=== PATIENT | female | born 1995 | race Caucasian/White ===

== ENCOUNTER 2016-03-25 11:20 | Emergency (ER) | payer BC ==
[~2016-03-25] VITALS: Ht 167.6 cm; Wt 72.7 kg
[~2016-03-25 11:20] MED LIST: DEPO-PROVER150 MG/M1 IM; NEXPLANON68 MG ID; NORCO 325 MG-51 TAB PO; PERCOCET 325 MG1 TA2 PO; PHENERGAN 25 TA25 MG PO; TUSS PO
[2016-03-25 11:21] VITALS: TEMP 98.9
[2016-03-25 12:31] LABS: AMPHETAMINE URINE POSITIVE; BARBITURATES URINE NEGATIVE; BENZODIAZEPINES URINE NEGATIVE; BUPRENORPHINE URINE NEGATIVE; METHADONE URINE NEGATIVE; OPIATES URINE NEGATIVE; OXYCODONE URINE NEGATIVE; PHENCYCLIDINE URINE NEGATIVE; PROPOXYPHENE URINE NEGATIVE; THC CANNABINOIDS URINE NEGATIVE
[2016-03-25] MEDS ORDERED: FLAGYL500 MG PO (13:41)
[2016-03-25 13:57] VITALS: BP 111/66; PULSE 86
[2016-03-25 14:16] LABS: CHLAMYDIA/TRACH by PCR Female NOT DETECTED; NEISSERIA GON by PCR Female NOT DETECTED
[2016-04-02 23:38] LABS: 7-AMINOFLUNITRAZEPAM NEGATIVE (NEGATIVE); FLUNITRAZEPAM NEGATIVE (NEGATIVE)
== END 2016-03-25 13:57 | disposition home or self-care (01) ==
LOC: COL.ER 11:20
PROVIDERS: Family Medicine; Nurse Practitioner
DX: Z04.41 Encounter for examination and observation following alleged adult rape (principal)
CPT/HCPCS: J0696

== ENCOUNTER 2016-09-09 20:00 | Emergency (ER) | payer BC ==
[~2016-09-09] VITALS: Ht 167.6 cm; Wt 72.7 kg
[~2016-09-09 20:00] MED LIST changes: +FLAGYL500 MG PO
[2016-09-09 20:01] VITALS: BP 114/65; TEMP 99
[2016-09-09 20:53] LABS: PH 7 (5-8); SQUAMOUS EPITHELIAL None Seen /hpf; URINE APPEARANCE Turbid; URINE BACTERIA None Seen /hpf; URINE BILIRUBIN Negative (NEGATIVE); URINE BLOOD 3+ (NEGATIVE); URINE COLOR Red; URINE GLUCOSE Negative (NEGATIVE); URINE KETONE Negative (NEGATIVE); URINE RBC >50 /hpf; URINE UROBILINOGEN Negative (NEGATIVE)
[2016-09-09 20:54] LABS: URINE WBC >50 /hpf
[2016-09-09] MEDS ORDERED: OMNICEF 300MG300 MG PO (20:59)
[2016-09-09] MEDS ORDERED: PYRIDIUM200 M1 PO (20:59)
[2016-09-09 21:08] VITALS: PULSE 78
== END 2016-09-09 21:09 | disposition home or self-care (01) ==
LOC: COL.ER 20:00
PROVIDERS: Emergency Medicine
DX: N39.0 Urinary tract infection, site not specified (principal)

== ENCOUNTER 2016-11-06 20:58 | Inpatient (IN) | payer BC ==
[~2016-11-06] VITALS: Ht 167.6 cm; Wt 83.9 kg
[~2016-11-06 20:58] MED LIST changes: +OMNICEF 300MG300 MG PO; +PYRIDIUM200 M1 PO
[2016-11-06 21:36] LABS: BASO # 0.1 (0.0-0.2); BASO % 0.6 % (0.0-2.0); EOS # 0.2 (0.0-0.7); EOS % 1.4 % (0-4.0); GRAN # 8.3 (1.4-6.5); GRAN % 65.9 % (42.2-75.2); HEMOGLOBIN 12.1 g/dl (12.5-16.0); LYMPH # 3.4 (1.2-3.4); LYMPH % 26.7 % (20.0-51.0); MEAN CELL VOLUME 86 fl (80.0-100.0); MEAN CORPUSCULAR HEMOGLOBIN 29 pg (27.0-31.0); MEAN CORPUSCULAR HGB CONC 34 g/dl (33.0-37.0); MEAN PLATELET VOLUME 9.3 fl (7.4-10.4); MONO # 0.6 (0.1-0.6); PLATELET COUNT 340 K/mm3 (130-400); RED BLOOD COUNT 4.12 M/mm3 (4.10-5.30); REDCELL DISTRIBUTION WIDTH-CV 12.3 % (11.5-14.5); WHITE BLOOD COUNT 12.6 K/mm3 (4.8-10.8)
[2016-11-06 21:38] LABS: ADJUSTED CALCIUM 8.6 mg/dL (8.4-10.2); ALBUMIN 4.1 gm/dL (3.5-5.0); BILIRUBIN,TOTAL 0.4 mg/dL (0.0-1.0); CALCIUM 8.7 mg/dL (8.4-10.2); CREATININE, serum 0.99 mg/dL (0.52-1.25); HEMATOCRIT 35.5 % (37.0-47.0); TOTAL PROTEIN 7.3 gm/dL (6.4-8.2)
[2016-11-06 22:07] LABS: ALLEN TEST YES; ATS? YES
[2016-11-06 22:13] LABS: ARTERIAL BLOOD GAS pH 7.35 (7.35-7.45)
[2016-11-06 22:14] LABS: ARTERIAL BLOOD GAS HCO3 21.1 meq/L (22-26); ARTERIAL BLOOD GAS PO2 113.2 mmHg (80-100)
[2016-11-06 22:15] LABS: ARTERIAL BLD GAS O2 SATURATION 97.5 % (92-100); ARTERIAL BLOOD GAS BASE EXCESS -4.2 (-2-2)
[2016-11-06 22:16] LABS: ARTERIAL BLD GAS TCO2 CT 22.3; OXYHEMOGLOBIN 96.5 %
[2016-11-06 22:17] LABS: ALLEN TEST YES; ATS? YES
[2016-11-07] VITALS (7 sets, daily range): BP systolic 99–122; BP diastolic 62–83; PULSE 78–96; TEMP 97.2–98.8
[2016-11-07] MEDS ORDERED: PERCOCET 325 MG1 TA3 PO (16:08)
[2016-11-07] MEDS ORDERED: COLACE 100100 MG/CAP PO (16:08)
[2016-11-07] MEDS ORDERED: MOTRIN 800800 MG/TAB PO (16:08)
[2016-11-07] MEDS ORDERED: ZOFRAN ODT4 MG PO (16:09)
[2016-11-08 02:39] VITALS: BP 94/56; PULSE 77; TEMP 98.1
[2016-11-08 07:50] VITALS: BP 110/72; PULSE 80; TEMP 98.2
== END 2016-11-08 10:51 | disposition home or self-care (01) | DRG 935 ==
LOC: COL.ER 20:58 → MEDICAL 11-07 00:12
PROVIDERS: Emergency Medicine
DX: T24.291A Burn of second degree of multiple sites of right lower limb, except ankle and foot, initial encounter (principal); T24.292A Burn of second degree of multiple sites of left lower limb, except ankle and foot, initial encounter; T20.22XA Burn of second degree of lip(s), initial encounter; T20.26XA Burn of second degree of forehead and cheek, initial encounter; X00.8XXA Other exposure to uncontrolled fire in building or structure, initial encounter
CPT/HCPCS: A9284; J1170; J1885; J2270; J7030

== ENCOUNTER 2016-12-08 13:04 | Observation (INO) | payer BC ==
[~2016-12-08] VITALS: Ht 167.6 cm; Wt 75.0 kg
[2016-12-08] VITALS (7 sets, daily range): BP systolic 103–116; BP diastolic 58–78; PULSE 82–131; TEMP 98.4–99.3
[~2016-12-08 13:04] MED LIST changes: +COLACE 100100 MG/CAP PO; +MOTRIN 800800 MG/TAB PO; +PERCOCET 325 MG1 TA3 PO; +ZOFRAN ODT4 MG PO
[2016-12-08 14:05] LABS: BASO # 0.1 (0.0-0.2); BASO % 0.4 % (0.0-2.0); EOS % 0.3 % (0-4.0); GRAN # 11.1 (1.4-6.5); GRAN % 81.1 % (42.2-75.2); LYMPH # 1.8 (1.2-3.4); LYMPH % 13.1 % (20.0-51.0); MEAN CELL VOLUME 85 fl (80.0-100.0); MEAN CORPUSCULAR HGB CONC 35 g/dl (33.0-37.0); MEAN PLATELET VOLUME 10.2 fl (7.4-10.4); MONO # 0.6 (0.1-0.6); MONO % 4.7 % (1.7-9.3); PLATELET COUNT 235 K/mm3 (130-400); WHITE BLOOD COUNT 13.7 K/mm3 (4.8-10.8)
[2016-12-08 14:07] LABS: HEMATOCRIT 33.1 % (37.0-47.0); HEMOGLOBIN 11.5 g/dl (12.5-16.0); MEAN CORPUSCULAR HEMOGLOBIN 29 pg (27.0-31.0)
[2016-12-08 14:21] LABS: ADJUSTED CALCIUM 9.3 mg/dL (8.4-10.2); ALBUMIN 4.8 gm/dL (3.5-5.0); BILIRUBIN,TOTAL 0.5 mg/dL (0.0-1.0); C-REACTIVE PROTEIN 4.6 mg/dL (0.0-0.9); CALCIUM 9.9 mg/dL (8.4-10.2); CREATININE, serum 0.65 mg/dL (0.52-1.25); POTASSIUM 3.7 mmol/L (3.4-5.0); TOTAL PROTEIN 8.3 gm/dL (6.4-8.2)
[2016-12-08] MEDS ORDERED: PERCOCET 325 MG1 TA2 PO (17:58)
[2016-12-08] MEDS ORDERED: AMOXICILLIN 8751 TAB PO (17:58)
== END 2016-12-08 23:10 | disposition home or self-care (01) ==
LOC: COL.ER 13:04 → OB 17:08
PROVIDERS: Emergency Medicine
DX: O04.6 Delayed or excessive hemorrhage following (induced) termination of pregnancy (principal); R30.0 Dysuria
CPT/HCPCS: J1170; J1580; J2405; J2704; J3010; J7030